=== PATIENT | female | born 1995 | race Caucasian/White ===

== ENCOUNTER 2016-09-30 19:42 | Emergency (ER) | payer OTHER, BC ==
[~2016-09-30] VITALS: Ht 157.5 cm; Wt 62.1 kg
[2016-09-30 19:42] VITALS: BP 123/72
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
== END 2016-09-30 20:41 | disposition home or self-care (01) ==
LOC: ER 19:42
DX: M54.2 Cervicalgia (principal); M54.89 Other dorsalgia; V49.9XXA Car occupant (driver) (passenger) injured in unspecified traffic accident, initial encounter; Y93.89 Activity, other specified; Y99.8 Other external cause status; Y92.89 Other specified places as the place of occurrence of the external cause
CPT/HCPCS: 99281